=== PATIENT | male | born 1950 | race Two or more races ===

== ENCOUNTER 2022-04-13 09:50 | Outpatient (CLI) | payer MEDICARE | END 2022-04-13 23:59 | disposition home or self-care (01) | LOC: RAD 09:50 | PROVIDERS: ATTEND Internal Medicine Interventional Cardiology | DX: R06.00 Dyspnea, unspecified (principal) | CPT/HCPCS: 71045-TC ==

== ENCOUNTER 2023-04-04 17:45 | Inpatient (IN) | payer MEDICARE, OTHER ==
[~2023-04-04] VITALS: Ht 167.6 cm; Wt 78.9 kg
[2023-04-04 18:43] LABS: BASOPHILS # (AUTO) 0.1 K/uL (0.0-0.2); BASOPHILS % (AUTO) 1.1 % (0.0-2.0); EOSINOPHILS % (AUTO) 0.1 % (0.0-6.0); HEMATOCRIT 31 % (39-51); HEMOGLOBIN 9.6 g/dL (13.5-17.5); LYMPHOCYTES % (AUTO) 12.3 % (20.0-44.0); MEAN CORPUSCULAR HEMOGLOBIN 28 PG (26.0-33.0); MEAN CORPUSCULAR HGB CONC 31 g/dl (31.0-36.0); MEAN CORPUSCULAR VOLUME 89 fL (80-96); MONOCYTES # (AUTO) 0.9 K/uL (0.1-1.30); MONOCYTES % (AUTO) 11.2 % (2.0-12.0); NEUTROPHILS # (AUTO) 6.1 K/uL (1.8-8.9); NEUTROPHILS % (AUTO) 75.3 % (43.0-81.0); PLATELET COUNT (AUTO) 173 K/uL (150-450); RED BLOOD CELL COUNT(AUTO) 3.44 MIL/uL (4.5-6.0); WHITE BLOOD COUNT (AUTO) 8.1 K/uL (4.3-11.0)
[2023-04-04 18:54] LABS: CARBON DIOXIDE 31 mmol/L (21-32); CHLORIDE 96 mmol/L (98-107); CREATININE 6.6 mg/dL (0.6-1.3); GLUCOSE 121 mg/dL (74-106); POTASSIUM 5.4 mmol/L (3.5-5.1); SODIUM SERUM 136 mmol/L (136-145); UREA NITROGEN, BLOOD 67 mg/dL (7-18)
[2023-04-04 18:55] LABS: INR 1.13 (0.91-1.10); PARTIAL THROMBOPLASTIN TIME 27.7 SEC (24.3-34.3); PROTHROMBIN TIME 11.9 SECS (9.2-11.1)
[2023-04-04 19:07] LABS: ALANINE AMINOTRANSFERASE 32 U/L (12-78); ALBUMIN 2.9 g/dL (3.4-5.0); ALKALINE PHOSPHATASE 85 U/L (46-116); ASPARTATE AMINOTRANSFERASE 19 U/L (15-37); BILIRUBIN,DIRECT 0.3 mg/dL (0.0-0.2); BILIRUBIN,TOTAL 0.9 mg/dL (0.2-1.0); NT-PRO BNP > 25000 pg/mL (0-125); TOTAL PROTEIN, SERUM 6.6 g/dL (6.4-8.2)
[2023-04-04] MEDS ORDERED: FUROSEMIDE 40 MG/4 ML VIAL IV ONE (20:00)
[2023-04-04] MEDS ORDERED: FUROSEMIDE 40 MG/4 ML VIAL ONE (20:21)
[2023-04-04 21:30] VITALS: BP 125/84; TEMP 99; O2SAT 97
[2023-04-04 22:00] VITALS: BP 125/84; TEMP 99; O2SAT 99
[2023-04-04] MEDS ORDERED: MAG HYDROX/AL HYDROX/SIMETH 30 ML UDC PO PRN (23:30)
[2023-04-04] MEDS ORDERED: MAGNESIUM HYDROXIDE 30 ML UDC PO PRN (23:30)
[2023-04-04] MEDS ORDERED: ACETAMINOPHEN 325 MG TABLET PO PRN (23:30)
[2023-04-04] MEDS ORDERED: ZOLPIDEM TARTRATE 5 MG TABLET PO PRN (23:30)
[2023-04-04] MEDS ORDERED: Z GUARD REMEDY 4 OZ OINT TP PRN (23:30)
[2023-04-04] MEDS ORDERED: ONDANSETRON HCL/PF 4 MG/2 ML VIAL IVP PRN (23:30)
[2023-04-05] VITALS (42 sets, daily range): BP systolic 90–183; BP diastolic 53–109; TEMP 98–99.3; O2SAT 95–100
[2023-04-05 05:51] LABS: BASOPHILS % (AUTO) 0.5 % (0.0-2.0); EOSINOPHILS # (AUTO) 0.1 K/uL (0.0-0.7); EOSINOPHILS % (AUTO) 0.8 % (0.0-6.0); HEMATOCRIT 29 % (39-51); HEMOGLOBIN 9.2 g/dL (13.5-17.5); LYMPHOCYTES # (AUTO) 1.1 K/uL (0.8-4.8); LYMPHOCYTES % (AUTO) 14.6 % (20.0-44.0); MEAN CORPUSCULAR HEMOGLOBIN 28 PG (26.0-33.0); MEAN CORPUSCULAR HGB CONC 32 g/dl (31.0-36.0); MEAN CORPUSCULAR VOLUME 89 fL (80-96); MONOCYTES # (AUTO) 0.9 K/uL (0.1-1.30); MONOCYTES % (AUTO) 11.2 % (2.0-12.0); NEUTROPHILS # (AUTO) 5.7 K/uL (1.8-8.9); NEUTROPHILS % (AUTO) 72.9 % (43.0-81.0); PLATELET COUNT (AUTO) 159 K/uL (150-450); RED BLOOD CELL COUNT(AUTO) 3.29 MIL/uL (4.5-6.0); RED CELL DISTRIBUTION WIDTH 17.5 % (11.5-15.0); WHITE BLOOD COUNT (AUTO) 7.8 K/uL (4.3-11.0)
[2023-04-05 06:02] LABS: CARBON DIOXIDE 27 mmol/L (21-32); CHLORIDE 98 mmol/L (98-107); CREATININE 6.9 mg/dL (0.6-1.3); GLUCOSE 83 mg/dL (74-106); MAGNESIUM 2.3 mg/dL (1.8-2.4); PHOSPHORUS 5.3 mg/dL (2.5-4.9); POTASSIUM 5.2 mmol/L (3.5-5.1); SODIUM SERUM 136 mmol/L (136-145); UREA NITROGEN, BLOOD 74 mg/dL (7-18)
[2023-04-05 06:08] LABS: THYROID STIMULATING HORMONE 2.482 uIU/mL (0.358-3.74)
[2023-04-05] MEDS ORDERED: ANESTHESIA TRAY IN PYXIS 1 EA TRAY MC ONE (06:44)
[2023-04-05] MEDS ORDERED: AMIODARONE 150 MG in IV D5W 100 ML IV ONE ×2 (07:30→09:00)
[2023-04-05] MEDS: APIXABAN 5 MG TABLET PO SCH ×2 (07:58→17:00)
[2023-04-05] MEDS ORDERED: AMIODARONE 450 MG in IV D5W 241 ML IV PRN ×2 (08:00→09:00)
[2023-04-05] MEDS: AMIODARONE 450 MG in IV D5W 241 ML IV PRN ×2 (08:46→14:57)
[2023-04-05] MEDS: PANTOPRAZOLE 40 MG VIAL IV SCH (09:46)
[2023-04-05] MEDS ORDERED: FOLI0.8T23 PO (13:52)
[2023-04-05] MEDS ORDERED: DILT-32 PO (13:52)
[2023-04-05] MEDS ORDERED: SODIUM BICARBONATE PO (13:52)
[2023-04-05] MEDS ORDERED: ESCI10TA PO (13:52)
[2023-04-05] MEDS ORDERED: LINA72CA PO (13:52)
[2023-04-05] MEDS ORDERED: HYDR200T4 PO (13:52)
[2023-04-05] MEDS ORDERED: AMIO200T5 PO (13:52)
[2023-04-05] MEDS ORDERED: PANT40TA2 PO (13:52)
[2023-04-05] MEDS ORDERED: APIX2.5T PO (13:52)
[2023-04-05] MEDS ORDERED: ATOR20TA PO (13:52)
[2023-04-05] MEDS ORDERED: LIDO30CR47 TP (13:52)
[2023-04-05] MEDS ORDERED: LORA10TA7 PO (13:52)
[2023-04-05] MEDS ORDERED: ACET500C4 PO (13:52)
[2023-04-05] MEDS ORDERED: AZEL137S7 BNOSTRILS (13:52)
[2023-04-05] MEDS ORDERED: PRED5TAB PO (13:52)
[2023-04-05] MEDS ORDERED: SEVE800T8 PO (13:52)
[2023-04-05] MEDS ORDERED: ZOLP10TA2 PO (13:52)
[2023-04-05] MEDS ORDERED: TOBR3.5O2 RIGHTEYE (13:52)
[2023-04-06] VITALS (35 sets, daily range): BP systolic 94–135; BP diastolic 52–95; TEMP 98.3–99; O2SAT 92–99
[2023-04-06] MEDS: AMIODARONE 450 MG in IV D5W 241 ML IV PRN (05:00)
[2023-04-06 05:19] LABS: BASOPHILS # (AUTO) 0.1 K/uL (0.0-0.2); BASOPHILS % (AUTO) 0.6 % (0.0-2.0); EOSINOPHILS % (AUTO) 0.2 % (0.0-6.0); HEMATOCRIT 28 % (39-51); LYMPHOCYTES # (AUTO) 0.8 K/uL (0.8-4.8); LYMPHOCYTES % (AUTO) 9.3 % (20.0-44.0); MEAN CORPUSCULAR HEMOGLOBIN 28 PG (26.0-33.0); MEAN CORPUSCULAR HGB CONC 32 g/dl (31.0-36.0); MEAN CORPUSCULAR VOLUME 88 fL (80-96); MONOCYTES # (AUTO) 1.1 K/uL (0.1-1.30); MONOCYTES % (AUTO) 13.1 % (2.0-12.0); NEUTROPHILS # (AUTO) 6.2 K/uL (1.8-8.9); NEUTROPHILS % (AUTO) 76.8 % (43.0-81.0); PLATELET COUNT (AUTO) 168 K/uL (150-450); RED CELL DISTRIBUTION WIDTH 17.4 % (11.5-15.0); WHITE BLOOD COUNT (AUTO) 8.1 K/uL (4.3-11.0)
[2023-04-06 05:44] LABS: CALCIUM, SERUM 8.9 mg/dL (8.5-10.1); CARBON DIOXIDE 25 mmol/L (21-32); CHLORIDE 95 mmol/L (98-107); CREATININE 5.3 mg/dL (0.6-1.3); GLUCOSE 81 mg/dL (74-106); MAGNESIUM 2.1 mg/dL (1.8-2.4); PHOSPHORUS 4.5 mg/dL (2.5-4.9); POTASSIUM 4.3 mmol/L (3.5-5.1); SODIUM SERUM 132 mmol/L (136-145); UREA NITROGEN, BLOOD 44 mg/dL (7-18)
[2023-04-06] MEDS ORDERED: AMIODARONE HCL 200 MG TABLET PO SCH ×2 (09:30)
[2023-04-06] MEDS: PANTOPRAZOLE 40 MG VIAL IV SCH (10:07)
[2023-04-06] MEDS: APIXABAN 5 MG TABLET PO SCH (10:16)
[2023-04-06] MEDS ORDERED: DILTIAZEM HCL CD 120 MG PO SCH (11:00)
[2023-04-06] MEDS ORDERED: APIX5TAB PO (11:54)
[2023-04-06] MEDS ORDERED: PANT40SU2 PO (11:54)
[2023-04-07] MEDS ORDERED: PANTOPRAZOLE 40 MG/PACK PACK PO SCH (09:00)
== END 2023-04-06 15:00 | disposition home or self-care (01) | DRG 280 ==
LOC: ER 17:58 → TELE 20:40 → ICU 04-05 06:37
PROVIDERS: ADMIT Student in an Organized Health Care Education/Training Program; ATTEND Nurse Practitioner Acute Care
PROC: 5A2204Z Restoration of Cardiac Rhythm, Single (ICD-10-PCS; principal; 2023-04-05)
PROC: 5A1D70Z Performance of Urinary Filtration, Intermittent, Less than 6 Hours Per Day (ICD-10-PCS; 2023-04-05)
PROC: B24BZZ4 Ultrasonography of Heart with Aorta, Transesophageal (ICD-10-PCS; 2023-04-05)
DX: I48.92 Unspecified atrial flutter (principal); I50.43 Acute on chronic combined systolic (congestive) and diastolic (congestive) heart failure; I21.A1 Myocardial infarction type 2; N18.6 End stage renal disease; I13.2 Hypertensive heart and chronic kidney disease with heart failure and with stage 5 chronic kidney disease, or end stage renal disease; E44.0 Moderate protein-calorie malnutrition; I69.351 Hemiplegia and hemiparesis following cerebral infarction affecting right dominant side; D68.69 Other thrombophilia; I49.3 Ventricular premature depolarization; D86.9 Sarcoidosis, unspecified; D63.1 Anemia in chronic kidney disease; I48.0 Paroxysmal atrial fibrillation; M89.8X9 Other specified disorders of bone, unspecified site; Z99.2 Dependence on renal dialysis; E87.5 Hyperkalemia; Z68.28 Body mass index [BMI] 28.0-28.9, adult; Z79.01 Long term (current) use of anticoagulants; Z95.2 Presence of prosthetic heart valve; I25.10 Atherosclerotic heart disease of native coronary artery without angina pectoris
CPT/HCPCS: 36415; 71045-TC; 80048-TC; 80076-TC; 83735-TC; 83880; 84100-TC; 84443-TC; 84484-TC; 85025-TC; 85730-TC; 90935-TC; 93312-TC; 93970-TC; A4223; C9113; G0378; J0282; J0461; J1940; J2704; J3490; J7030; J7060

== ENCOUNTER 2023-05-03 11:57 | Inpatient (IN) | payer MEDICARE, OTHER ==
[2023-05-03] VITALS (21 sets, daily range): BP systolic 104–141; BP diastolic 78–107; TEMP 98; O2SAT 94–100
[~2023-05-03] VITALS: Ht 167.6 cm; Wt 80.3 kg
[~2023-05-03 11:57] MED LIST: ACET500C4 PO; APIX5TAB PO; ATOR20TA PO; AZEL137S7 BNOSTRILS; DILT-32 PO; ESCI10TA PO; FOLI0.8T23 PO; LINA72CA PO; PANT40SU2 PO
[2023-05-03] MEDS ORDERED: methylPREDNISolone SOD SUCC 125 MG/2ML VIAL ONE (12:25)
[2023-05-03] MEDS: methylPREDNISolone SOD SUCC 125 MG/2ML VIAL IV ONE (12:45)
[2023-05-03 12:57] LABS: D-DIMER 0.59 mg/L(FEU (0.17-0.50); INR 1.21 (0.91-1.10); PARTIAL THROMBOPLASTIN TIME 27.5 SEC (24.3-34.3); PROTHROMBIN TIME 12.7 SECS (9.2-11.1)
[2023-05-03] MEDS: DOPamine 400 MG in IV D5W 250 ML IV PRN ×2 (13:00→19:02)
[2023-05-03] MEDS ORDERED: PANT40TA49 PO (13:08)
[2023-05-03] MEDS ORDERED: PRED10TA PO (13:08)
[2023-05-03] MEDS ORDERED: APIX5TAB PO (13:08)
[2023-05-03] MEDS ORDERED: SEVE800T8 PO (13:08)
[2023-05-03] MEDS ORDERED: HYDR-4076 PO (13:08)
[2023-05-03] MEDS ORDERED: SODI650T PO (13:08)
[2023-05-03] MEDS ORDERED: AMIO200T5 PO (13:08)
[2023-05-03] MEDS ORDERED: ASPI-1420 PO (13:08)
[2023-05-03] MEDS ORDERED: CETI10TA14 PO (13:08)
[2023-05-03 13:12] LABS: ALANINE AMINOTRANSFERASE 28 U/L (12-78); ALBUMIN 3.1 g/dL (3.4-5.0); ALKALINE PHOSPHATASE 104 U/L (46-116); ASPARTATE AMINOTRANSFERASE 15 U/L (15-37); BILIRUBIN,DIRECT 0.3 mg/dL (0.0-0.2); BILIRUBIN,TOTAL 0.9 mg/dL (0.2-1.0); CALCIUM, SERUM 8.8 mg/dL (8.5-10.1); CARBON DIOXIDE 20 mmol/L (21-32); CHLORIDE 93 mmol/L (98-107); GLUCOSE 142 mg/dL (74-106); NT-PRO BNP > 25000 pg/mL (0-125); POTASSIUM 5.4 mmol/L (3.5-5.1); SODIUM SERUM 131 mmol/L (136-145); TOTAL PROTEIN, SERUM 7.1 g/dL (6.4-8.2)
[2023-05-03 13:17] LABS: CREATININE 7.5 mg/dL (0.6-1.3)
[2023-05-03 13:19] LABS: UREA NITROGEN, BLOOD 104 mg/dL (7-18)
[2023-05-03 13:20] LABS: LACTIC ACID 4.4 mmol/L (0.4-2.0)
[2023-05-03 13:43] LABS: BASOPHILS # (AUTO) 0.1 K/uL (0.0-0.2); BASOPHILS % (AUTO) 0.7 % (0.0-2.0); EOSINOPHILS % (AUTO) 0.4 % (0.0-6.0); HEMATOCRIT 31 % (39-51); HEMOGLOBIN 9.6 g/dL (13.5-17.5); LYMPHOCYTES # (AUTO) 1.5 K/uL (0.8-4.8); LYMPHOCYTES % (AUTO) 16.4 % (20.0-44.0); MEAN CORPUSCULAR HEMOGLOBIN 27 PG (26.0-33.0); MEAN CORPUSCULAR HGB CONC 31 g/dl (31.0-36.0); MEAN CORPUSCULAR VOLUME 87 fL (80-96); MONOCYTES # (AUTO) 0.7 K/uL (0.1-1.30); MONOCYTES % (AUTO) 7.7 % (2.0-12.0); NEUTROPHILS # (AUTO) 6.8 K/uL (1.8-8.9); NEUTROPHILS % (AUTO) 74.8 % (43.0-81.0); PLATELET COUNT (AUTO) 144 K/uL (150-450); RED BLOOD CELL COUNT(AUTO) 3.55 MIL/uL (4.5-6.0); RED CELL DISTRIBUTION WIDTH 19.3 % (11.5-15.0); WHITE BLOOD COUNT (AUTO) 9.1 K/uL (4.3-11.0)
[2023-05-03] MEDS: DOPamine 400 MG/D5W 250 ML RTU BAG IV ONE (13:46)
[2023-05-03] MEDS ORDERED: ZOLPIDEM TARTRATE 5 MG TABLET PO PRN (15:30)
[2023-05-03] MEDS ORDERED: ONDANSETRON HCL/PF 4 MG/2 ML VIAL IVP PRN (15:30)
[2023-05-03] MEDS ORDERED: MAG HYDROX/AL HYDROX/SIMETH 30 ML UDC PO PRN (15:30)
[2023-05-03] MEDS ORDERED: Z GUARD REMEDY 4 OZ OINT TP PRN (15:30)
[2023-05-03] MEDS ORDERED: ACETAMINOPHEN 325 MG TABLET PO PRN (15:30)
[2023-05-03] MEDS ORDERED: HYDROCODONE/APAP 5/325MG TABLET PO PRN (15:30)
[2023-05-03] MEDS: CEFTRIAXONE 2 G in IV D5W 100 ML IV SCH (18:00)
[2023-05-03] MEDS: SEVELAMER CARBONATE 800 MG TABLET PO SCH (18:57)
[2023-05-03] MEDS: SODIUM BICARBONATE 650 MG TABLET PO SCH (18:57)
[2023-05-03] MEDS: APIXABAN 5 MG TABLET PO SCH (19:01)
[2023-05-03 21:48] LABS: CALCIUM, SERUM 8.5 mg/dL (8.5-10.1); CARBON DIOXIDE 25 mmol/L (21-32); CHLORIDE 95 mmol/L (98-107); CREATININE 5.4 mg/dL (0.6-1.3); GLUCOSE 181 mg/dL (74-106); MAGNESIUM 2.4 mg/dL (1.8-2.4); POTASSIUM 4.9 mmol/L (3.5-5.1); SODIUM SERUM 133 mmol/L (136-145); UREA NITROGEN, BLOOD 72 mg/dL (7-18)
[2023-05-03] MEDS: VANCOMYCIN 1 GM in IV D5W 250ml IV ONE (22:04)
[2023-05-04] VITALS (65 sets, daily range): BP systolic 74–147; BP diastolic 46–112; TEMP 97.6–98.5; O2SAT 94–100
[2023-05-04 04:38] LABS: BASOPHILS % (AUTO) 0.2 % (0.0-2.0); HEMATOCRIT 27 % (39-51); HEMOGLOBIN 8.7 g/dL (13.5-17.5); LYMPHOCYTES # (AUTO) 0.6 K/uL (0.8-4.8); LYMPHOCYTES % (AUTO) 12.8 % (20.0-44.0); MEAN CORPUSCULAR HEMOGLOBIN 27 PG (26.0-33.0); MEAN CORPUSCULAR HGB CONC 32 g/dl (31.0-36.0); MEAN CORPUSCULAR VOLUME 85 fL (80-96); MONOCYTES # (AUTO) 0.2 K/uL (0.1-1.30); MONOCYTES % (AUTO) 4.1 % (2.0-12.0); NEUTROPHILS # (AUTO) 4.1 K/uL (1.8-8.9); NEUTROPHILS % (AUTO) 82.9 % (43.0-81.0); PLATELET COUNT (AUTO) 136 K/uL (150-450); RED BLOOD CELL COUNT(AUTO) 3.19 MIL/uL (4.5-6.0); RED CELL DISTRIBUTION WIDTH 18.4 % (11.5-15.0); WHITE BLOOD COUNT (AUTO) 4.9 K/uL (4.3-11.0)
[2023-05-04 04:44] LABS: ALANINE AMINOTRANSFERASE 25 U/L (12-78); ALBUMIN 2.8 g/dL (3.4-5.0); ALKALINE PHOSPHATASE 97 U/L (46-116); ASPARTATE AMINOTRANSFERASE 16 U/L (15-37); BILIRUBIN,TOTAL 0.5 mg/dL (0.2-1.0); CALCIUM, SERUM 8.3 mg/dL (8.5-10.1); CARBON DIOXIDE 26 mmol/L (21-32); CHLORIDE 96 mmol/L (98-107); CREATININE 5.5 mg/dL (0.6-1.3); GLUCOSE 135 mg/dL (74-106); MAGNESIUM 2.4 mg/dL (1.8-2.4); PHOSPHORUS 6.4 mg/dL (2.5-4.9); POTASSIUM 4.7 mmol/L (3.5-5.1); SODIUM SERUM 133 mmol/L (136-145); TOTAL PROTEIN, SERUM 6.6 g/dL (6.4-8.2); UREA NITROGEN, BLOOD 72 mg/dL (7-18)
[2023-05-04 04:54] LABS: THYROID STIMULATING HORMONE 1.219 uIU/mL (0.358-3.74)
[2023-05-04 05:38] LABS: ANISOCYTOSIS 1+; LYMPHOCYTES % (MANUAL) 9 % (16-48); MONOCYTES % (MANUAL) 2 % (0-11.0); NEUTROPHILS % (MANUAL) 89 (42-76); OVALOCYTES 1+; PLATELET ESTIMATE DECREASED
[2023-05-04] MEDS: PANTOPRAZOLE 40 MG TABLET.DR PO SCH (07:38)
[2023-05-04] MEDS: ASPIRIN EC 81 MG TABLET.DR PO SCH (08:35)
[2023-05-04] MEDS: predniSONE 5 MG TABLET PO SCH (08:37)
[2023-05-04] MEDS: VIT B CMPLX 3/FA/VIT C/BIOTIN 1 TAB TABLET PO SCH (08:37)
[2023-05-04] MEDS: ATORVASTATIN 10 MG TABLET PO SCH (08:37)
[2023-05-04] MEDS: dexaMETHasone SOD PHOSPHATE 10 MG/ML VIAL IV SCH (09:04)
[2023-05-04 16:57] LABS: HIV-1 p24 ANTIGEN NON REACTIVE (NONREACTIVE); HIV-1/2 ANTIBODY NON REACTIVE (NONREACTIVE)
[2023-05-04] MEDS: MAGNESIUM HYDROXIDE 30 ML UDC PO PRN (19:48)
[2023-05-04] MEDS: VANCOMYCIN POST DIALYSIS 500MG IV PRN (20:58)
[2023-05-05] VITALS: BP 136/68; TEMP 97.6; O2SAT 100
[2023-05-05 04:00] VITALS: BP 132/72; TEMP 98.1; O2SAT 98
[2023-05-05 04:07] LABS: HEPATITIS B SURFACE AB Non Reactive (.)
[2023-05-05 08:00] VITALS: BP 120/84; TEMP 98.1; O2SAT 100
[2023-05-05 08:25] LABS: BASOPHILS % (AUTO) 0.1 % (0.0-2.0); HEMATOCRIT 27 % (39-51); HEMOGLOBIN 8.6 g/dL (13.5-17.5); LYMPHOCYTES # (AUTO) 0.9 K/uL (0.8-4.8); LYMPHOCYTES % (AUTO) 7.5 % (20.0-44.0); MEAN CORPUSCULAR HEMOGLOBIN 27 PG (26.0-33.0); MEAN CORPUSCULAR HGB CONC 32 g/dl (31.0-36.0); MEAN CORPUSCULAR VOLUME 85 fL (80-96); MONOCYTES # (AUTO) 0.9 K/uL (0.1-1.30); NEUTROPHILS # (AUTO) 10.7 K/uL (1.8-8.9); NEUTROPHILS % (AUTO) 85.4 % (43.0-81.0); PLATELET COUNT (AUTO) 131 K/uL (150-450); RED BLOOD CELL COUNT(AUTO) 3.17 MIL/uL (4.5-6.0); RED CELL DISTRIBUTION WIDTH 18.5 % (11.5-15.0); WHITE BLOOD COUNT (AUTO) 12.5 K/uL (4.3-11.0)
[2023-05-05 08:41] LABS: CALCIUM, SERUM 8.6 mg/dL (8.5-10.1); CARBON DIOXIDE 27 mmol/L (21-32); CHLORIDE 98 mmol/L (98-107); CREATININE 4.4 mg/dL (0.6-1.3); GLUCOSE 129 mg/dL (74-106); MAGNESIUM 2.5 mg/dL (1.8-2.4); PHOSPHORUS 6.2 mg/dL (2.5-4.9); POTASSIUM 4.5 mmol/L (3.5-5.1); SODIUM SERUM 137 mmol/L (136-145); UREA NITROGEN, BLOOD 53 mg/dL (7-18)
[2023-05-05] MEDS ORDERED: LINZESS PO SCH (09:00)
[2023-05-05] MEDS: SEVELAMER CARBONATE 800 MG TABLET PO SCH (13:17)
[2023-05-05 13:47] LABS: ABG BASE EXCESS -6.7 mmol/L; ABG OXYGEN SATURATION 99.2 % (92.0-98.5); ABG PCO2 25.6 mmHg (35.0-45.0); ABG PH 7.427 (7.350-7.450); ABG PO2 377.2 mmHg (75.0-100.0); ABG TOTAL HEMOGLOBIN 9.7 G/dL (13.5-18.0); COHb 0.5 % (0.5-1.5); MetHb 0.3 % (0.0-1.5); O2Hb 98.4 % (94.0-97.0); SITE, ABG Right Radial; VENT MODE, BG 15L NRB
[2023-05-05] MEDS ORDERED: AMOX-430 PO (14:42)
[2023-05-05] MEDS ORDERED: PRED10TA PO (14:42)
[2023-05-05] MEDS ORDERED: METH4TAB3 PO (14:42)
[2023-05-05] MEDS: AMOX/CLAVULANATE 875 MG TABLET PO ONE (16:22)
[2023-05-05 16:39] VITALS: BP 110/70; TEMP 98.1; O2SAT 98
== END 2023-05-05 18:08 | disposition home or self-care (01) | DRG 871 ==
LOC: ER 11:57 → ICU 17:09 → TELE1 05-04 22:50
PROVIDERS: ADMIT Student in an Organized Health Care Education/Training Program; ATTEND Student in an Organized Health Care Education/Training Program
PROC: 5A1D70Z Performance of Urinary Filtration, Intermittent, Less than 6 Hours Per Day (ICD-10-PCS; principal; 2023-05-03)
DX: A41.9 Sepsis, unspecified organism (principal); I50.33 Acute on chronic diastolic (congestive) heart failure; J96.01 Acute respiratory failure with hypoxia; N18.6 End stage renal disease; R65.21 Severe sepsis with septic shock; U07.1 COVID-19; J96.21 Acute and chronic respiratory failure with hypoxia; I13.2 Hypertensive heart and chronic kidney disease with heart failure and with stage 5 chronic kidney disease, or end stage renal disease; I48.92 Unspecified atrial flutter; E87.1 Hypo-osmolality and hyponatremia; E44.1 Mild protein-calorie malnutrition; E87.20 Acidosis, unspecified; I69.351 Hemiplegia and hemiparesis following cerebral infarction affecting right dominant side; J84.9 Interstitial pulmonary disease, unspecified; D63.1 Anemia in chronic kidney disease; E87.5 Hyperkalemia; D69.6 Thrombocytopenia, unspecified; I48.0 Paroxysmal atrial fibrillation; Z79.01 Long term (current) use of anticoagulants; D86.9 Sarcoidosis, unspecified; M89.8X9 Other specified disorders of bone, unspecified site; Z79.899 Other long term (current) drug therapy; Z87.891 Personal history of nicotine dependence; Z95.3 Presence of xenogenic heart valve; Z99.2 Dependence on renal dialysis; R00.1 Bradycardia, unspecified; Z66 Do not resuscitate
CPT/HCPCS: 36415; 36600; 71045-TC; 71250-TC; 80048-TC; 80053-TC; 80076-TC; 80202-TC; 82533; 82803-TC; 83605-TC; 83735-TC; 83880; 84100-TC; 84443-TC; 84484-TC; 85025-TC; 85378-TC; 85730-TC; 86140-TC; 86706; 86803; 87040-TC; 87340; 87806; 90935-TC; A4223; A6403; G0378; J0696; J1100; J1265; J2930; J3370; J7030; J7040; J7050; J7060; J7512